=== PATIENT | male | born 1985 | race Caucasian/White ===

== ENCOUNTER 2016-09-30 15:45 | Emergency (ER) | payer OTHER ==
[2016-09-30 16:00] VITALS: RESP 16; TEMP 98.2
--- NOTE | 2016-09-30 16:19 | EDPHY ---
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 He reports that he crushed his arm between two sheets of metal on a hydraulic lift. Upon arrival, he describes his pain as worsening in severity since the time of injury and localized mid- shaft of his right forearm. He has full range of motion and reports normal sensation to his right hand. He has taken Ibuprofen and used He denies any additional injuries. No pertinent medical history. REVIEW OF SYSTEMS: Aside from elements discussed in the HPI, a comprehensive 10-point review of systems was reviewed and is negative. PMH: Denies. SOCIAL HISTORY: domestic laundry worker. PHYSICAL EXAM: General:Patient is alert, in no acute distress. Focused exam of the right arm: Abrasion and tenderness to the mid forearm. No pain with passive range of motion of fingers. Light touch sensation and motor function is preserved in the axillary, median, radial and ulnar nerve distributions. There is a 2+ radial pulse with brisk cap refill. ED Course: Normally healthy 31-year-old male presents with tenderness to the right forearm secondary to an injury while working construction today; apparently, his arm was caught between a hydraulic lift and a metal piece with forcible removal. On exam, motor and sensation is in tact throughout. He has tenderness over the mid forearm and a small abrasion. Will proceed with x-ray of the right forearm. The patient declines pain medication at this time. X-ray reviewed by myself and is negative for acute fracture. Reading by Dr. Swann, radiologist, agrees. I discussed imaging results with the patient as well as appropriate at-home treatment plan. He expresses agreement to this. He will be given customary return precautions and will be discharged home in good condition. MDM: This patient presents to the emergency department with a crush injury to his forearm. On exam, there is no evidence of neurovascular or tendon injury. The patient shows no signs of compartment syndrome. On re-evaluation after approximately 1 and 0.5 hours in the emergency department, his exam remains unchanged. He is not in significant pain. I think it is safe for outpatient management and we discussed strict return precautions specifically related to development of compartment syndrome. - Data Points Imaging Results: Imaging Impressions Forearm X-Ray 09/30/16 16:24 Impression: Negative. No acute fracture or elbow effusion. General Time Seen by Provider: 09/30/16 16:12 Initial Vital Signs: Initial Vital Signs Temperature (C) 36.8 C 09/30/16 15:55 Heart Rate 76 09/30/16 15:55 Respiratory Rate 16 09/30/16 15:55 Blood Pressure 123/69 H 09/30/16 15:55 O2 Sat (%) 98 09/30/16 15:55 O2 Delivery Mode Room Air Allergies/Adverse Reactions: No Known Allergies Allergy (Verified 09/30/16 15:56) Home Medications: Medication Instructions Recorded NK [No Known Home Meds] 09/30/16 Departure - Departure Disposition: Home, Routine, Self-Care Clinical Impression: Contusion of right forearm Qualifiers: Encounter type: sequela Qualified Code(s): S50.11XS - Contusion of right forearm, sequela Abrasion of right forearm Qualifiers: Encounter type: initial encounter Qualified Code(s): S50.811A - Abrasion of right forearm, initial encounter Condition: Good Instructions: Contusion in Adults (ED), Abrasion (ED) Additional Instructions: 1. Take 600mg Ibuprofen every 4-6 hours as needed for pain. 2. Rest, ice, and elevate your injury until your pain resolves. 3. Return to the Emergency Department for severe pain, worsening swelling, changes in sensation or strength to your fingers, paleness of your arm, or for other serious concerns. 4. Follow-up with Workman's Compensation provider to be further evaluated if needed for your Work Comp program. Follow-up with an orthopedist for reevaluation if your pain does not improve in 5-7 days. Referrals: Work Comp Referral [facility] [Outside] - As per Instructions Donn Matias MD [Medical Doctor] - As per Instructions Report Scribed for: Reji Gatica Report Scribed by: Debi Vazquez Date of Report: 09/30/16 Time of Report: 16:19 Physician Review and Approval Statement: Portions of this note were transcribed by an ED scribe. I personally performed the history, physical exam, and medical decision making; and confirm the accuracy of the information in the transcribed note.
[2016-09-30 17:56] VITALS: BP 118/79; PULSE 84; O2SAT 96
== END 2016-09-30 17:56 | disposition home or self-care (01) ==
DX: S50.11XA Contusion of right forearm, initial encounter (principal); S50.811A Abrasion of right forearm, initial encounter; W23.1XXA Caught, crushed, jammed, or pinched between stationary objects, initial encounter; Y92.69 Other specified industrial and construction area as the place of occurrence of the external cause; Y99.0 Civilian activity done for income or pay; Y93.89 Activity, other specified